=== PATIENT | female | born 1945 | race Caucasian/White ===

== ENCOUNTER 2016-07-19 12:16 | Emergency (ER) | payer MEDICARE ==
[~2016-07-19 12:16] MED LIST: ASPIRIN EC325 MG PO; BENADRYL-DPS25 MG PO; FISH OIL 1,2001 EACH PO; HABITROL TP; HYDROCODONE 5MG/5 MG PO; METOPROLOL SUCC25 MG PO; PROAIR HFA8.5 GM IH; STIOLTO RESPIMAT4 GM IH; THERAPEUTIC MUL1 TAB PO; VITAMIN D1000 UNI1 PO; WELLBUTRIN75 MG PO; XANAX DPS0.25 MG PO; ZOCOR DPS10 MG PO; [UNRECOGNIZED DRUG - OTHER] PO
--- NOTE | 2016-07-25 16:08 | ER ---
ADMIT: 07/19/2016 RM/LOC: [facility] [place] MR#: [id number] [facility] [address] [id number] [address]OUL NOV[address] [facility] [place] [address] Emergency Room Report SEX: F AGE: 71 : 1945 DATE: 07/19/2016 ADDENDUM: CHIEF COMPLAINT: Allergic reaction. HISTORY OF PRESENT ILLNESS: This is a 71-year-old who was having a CT done of her chest and neck. She had contrast. She started feeling short of breath and felt like her throat was closing. They gave her Benadryl over there and then sent over to the emergency room. PAST MEDICAL HISTORY: Hypercholesteremia, anxiety, tachycardia, AAA repair, and lung cancer in remission for 3 months. MEDICATIONS: Please see nurse's note. ALLERGIES: TO SULFA. SOCIAL HISTORY: Denies any drugs or alcohol, but did quit smoking 2 years ago. FAMILY HISTORY: Noncontributory. REVIEW OF SYSTEMS: CONSTITUTIONAL: Denies any fevers, chills, or sweats. CARDIOVASCULAR AND RESPIRATORY: Denies any shortness of breath, but does feel a little bit of tightness in her chest, tightness in her throat. SKIN: She does feel like her hands and feet are burning. All systems otherwise negative. PHYSICAL EXAMINATION: VITAL SIGNS: Blood pressure is 128/88; pulse 33; respirations 16; temperature is 98.9, tympanic; and saturation of oxygen is 98% on room air. GENERAL APPEARANCE: The patient is in mild distress, but alert. HEENT: Tongue is slightly swollen. Her ears are both erythemic. NECK: Supple. ADMIT: 07/19/2016 RM/LOC: [facility] [place] MR#: [id number] [address] [place] [address], [place] [id number] RAOUL NOVAK [address] [place] [address] Emergency Room Report SEX: F AGE: 71 : 1945 HEART: Regular rate and rhythm. LUNGS: Decreased bilateral, but no wheezes. ABDOMEN: Soft and nontender. SKIN: By the time I see her, her rash is resolved except for the pink ears. NEURO AND PSYCH: She is alert and oriented x3. Mood and affect normal. COURSE IN THE EMERGENCY ROOM: I did give her Decadron and Pepcid. She feels actually significantly better. She has also received a 500 mL bolus of fluids. I am discharging her home with prednisone for 2 days, having her continue Benadryl as needed and return to the ER if any kind of shortness of breath. IMPRESSIONS: Allergic reaction to contrast dye. DANIEL Xavier / Regis Michelle MD / [place] JOB #: [id number] CC: Regis Michelle MD, Attending Physician Gill Krueger MD, Family Physician
== END 2016-07-19 15:05 | disposition home or self-care (01) ==
LOC: ER 12:16 → RAD.S 12:16 → ER 15:05
DX: R06.02 Shortness of breath (principal); T50.8X5A Adverse effect of diagnostic agents, initial encounter; E78.00 Pure hypercholesterolemia, unspecified; F41.9 Anxiety disorder, unspecified; Z87.891 Personal history of nicotine dependence